=== PATIENT | male | born 1990 | race African-American/Black ===

== ENCOUNTER 2020-11-11 09:26 | Emergency (ER) | payer OTHER ==
[2020-11-11] MEDS ORDERED: CHERRY SYRUP 10 ML UDC PO ONE (09:41)
[2020-11-11] MEDS ORDERED: DEXAMETHASONE 10 MG/ML VIAL PO STA (09:41)
--- NOTE | 2020-11-11 09:44 | ED Physician Documentation ---
PD HPI DYSPNEA - Stated complaint Stated Complaint: RESP DISTRESS - Chief complaint Chief Complaint: Resp - History obtained from History obtained from: Patient, EMS - History of Present Illness Timing - onset: How many days ago (4) Timing - onset during: Rest Timing - duration: Days (4) Timing - details: Gradual onset, Still present Inciting event(s): URI, Allergic rxn/anaphylaxis Improved by: Inhaler/neb, Steroids Worsened by: Exertion, Coughing Associated symptoms: Cough, Wheezing, Chest pain / discomfort Similar symptoms before: Diagnosis (asthma) Recently seen: Clinic - Additional information Additional information: 30-year-old male with a history of asthma has developed an increase in his asthma symptoms over the past 4 days. He has required steroids 3 times in the past year most recently at the end of September. He has developed a cough and congestion with clear phlegm and no fever. He has had prior sinus infection trigger his asthma exacerbations. He has not had otitis previously. He denies any ear pain muffled hearing or drainage down the back of his throat. Review of Systems Constitutional: denies: Fever Eyes: denies: Decreased vision Ears: denies: Ear pain Nose: reports: Congestion. denies: Rhinorrhea / runny nose Throat: denies: Sore throat Cardiac: reports: Chest pain / pressure. denies: Palpitations, Pedal edema, Calf pain Respiratory: reports: Dyspnea, Cough, Wheezing GI: denies: Abdominal Pain, Nausea, Vomiting : denies: Dysuria, Frequency PD PAST MEDICAL HISTORY - Present Medications Home Medications: Ambulatory Orders Medication Instructions Recorded Confirmed Albuterol Sulfate [Proair Hfa 1 - 2 puffs INH PRN PRN 11/11/20 11/11/20 Inhaler] Amox/Clav 875/125 [Augmentin] 1 each PO Q12H #20 tablet 11/11/20 Fluticasone/Salmeterol [Advair 1 - 2 puffs INH BID 11/11/20 11/11/20 250-50 Diskus] Loratadine [Claritin] 10 mg PO DAILY 11/11/20 11/11/20 guaiFENesin [Mucinex] 600 mg PO BID 11/11/20 11/11/20 predniSONE [Deltasone] 10 mg PO ONCE #26 tablet 11/11/20 - Allergies Allergies/Adverse Reactions: Allergies Allergy/AdvReac Type Severity Reaction Status Date / Time No Known Drug Allergies Allergy Verified 11/11/20 09:38 PD ED PE NORMAL - Vitals Vital signs reviewed: Yes (hypertensive ) - General General: Alert and oriented X 3, No acute distress, Well developed/nourished - HEENT HEENT: Atraumatic, PERRL, EOMI, Pharynx benign, Other (both TM's are erythematous with rounding of the umbo ) - Neck Neck: Supple, no meningeal sign, No bony TTP - Cardiac Cardiac: RRR, No murmur - Respiratory Respiratory: No respiratory distress, Other (apical wheeze on the right only with fair air movement otherwise. ) - Abdomen Abdomen: Soft, Non tender - Back Back: No CVA TTP, No spinal TTP - Derm Derm: Normal color, Warm and dry, No rash - Extremities Extremities: No deformity, No edema - Neuro Neuro: Alert and oriented X 3, mill washer 2-12 intact, No motor deficit, No sensory deficit, Normal speech Eye Opening: Spontaneous Motor: Obeys Commands Verbal: Oriented GCS Score: 15 - Psych Psych: Normal mood, Normal affect Results - Vitals Vitals: Vital Signs - 24 hr 11/11/20 09:27 Temperature 36.9 C Heart Rate 65 Respiratory 16 Rate Blood Pressure 134/82 H O2 Saturation 99 Oxygen O2 Source Room air - Rads (name of study) chest Radiology: Prelim report reviewed (IMPRESSION: No acute process.), EMP read indepedently, See rad report PD MEDICAL DECISION MAKING - ED course Complexity details: considered differential, d/w patient ED course: 30-year-old active [employer] male with a history of asthma has an exacerbation of his asthma he has used his inhaler several times today he has improvement in his airway [place] he is currently without significant complaint. On examination and without complaints of otitis the patient appears to have otitis. Is administered dexamethasone 10 mg orally and a chest x-ray is obtained as well as a Covid swab. Departure - Departure Disposition: 01 Home, Self Care Clinical Impression: Otitis media Qualifiers: Otitis media type: suppurative Chronicity: acute Laterality: bilateral Recurrence: not specified as recurrent Spontaneous tympanic membrane rupture: without spontaneous rupture Qualified Code(s): H66.003 - Acute suppurative otitis media without spontaneous rupture of ear drum, bilateral Asthma exacerbation Qualifiers: Asthma severity: mild Asthma persistence: intermittent Qualified Code(s): J45.21 - Mild intermittent asthma with (acute) exacerbation Condition: Stable Instructions: ED Otitis Media Acute Adult, ED Reactive Airway Disease Follow-Up: [facility] [Provider Group] Prescriptions: Amox/Clav 875/125 [Augmentin] 1 each PO Q12H #20 tablet predniSONE [Deltasone] 10 mg PO ONCE #26 tablet
--- NOTE | 2020-11-11 10:00 | XRAY Report ---
PROCEDURE: Chest 2 View X-Ray INDICATIONS: soa TECHNIQUE: 2 view(s) of the chest. COMPARISON: None. FINDINGS: Surgical changes and devices: None. Lungs and pleura: No pleural effusions or pneumothorax. Lungs are clear. Mediastinum: Mediastinal contours are normal. Heart size is normal. Bones and chest wall: No suspicious bony abnormalities. Soft tissues appear unremarkable. IMPRESSION: No acute process. Reviewed by: Bar Heller MD on 11/11/2020 9:59 AM [facility] Approved by: Bar Heller MD on 11/11/2020 9:59 AM [facility] Station ID: [id number]
[2020-11-11 10:34] VITALS: BP 122/67
== END 2020-11-11 10:40 | disposition home or self-care (01) ==
LOC: ED 09:26
DX: J45.21 Mild intermittent asthma with (acute) exacerbation (principal); H66.003 Acute suppurative otitis media without spontaneous rupture of ear drum, bilateral; Z11.52 Encounter for screening for COVID-19
CPT/HCPCS: 71046; 87635; 99284; A9270